=== PATIENT | male | born 1990 | race Two or more races ===

== ENCOUNTER 2024-07-14 05:40 | Day surgery (SDC) | payer OTHER ==
[2024-07-07 10:48] VITALS: BP 135/85
[~2024-07-14] VITALS: Ht 165.1 cm; Wt 95.3 kg
[2024-07-14] MEDS ORDERED: LIDOCAINE HCL 1%/EPINEPHRINE 20ML VIAL IJ ONE (10:30)
[2024-07-14] MEDS ORDERED: CEFAZOLIN SODIUM 1,000 MG VIAL IV ONE (10:30)
[2024-07-14] MEDS ORDERED: BUPIVACAINE HCL 30 ML VIAL IJ ONE (10:30)
[2024-07-14] MEDS ORDERED: BACITRACIN 28.35 GM OINT.TUBE TOP ONE (10:30)
[2024-07-14] MEDS ORDERED: ENALAPRILAT DIHYDRATE 1.25 MG/ML VIAL IV ONE ×2 (12:05→12:35)
== END 2024-07-14 14:05 | disposition home or self-care (01) ==
LOC: CIR.AMB 05:40
PROVIDERS: ATTEND Surgery Surgery of the Hand
DX: D21.12 Benign neoplasm of connective and other soft tissue of left upper limb, including shoulder (principal); M67.442 Ganglion, left hand